=== PATIENT | male | born 1970 | race Two or more races ===

== ENCOUNTER 2023-08-03 21:59 | Inpatient (IN) | payer OTHER ==
[~2023-08-03] VITALS: Ht 160 cm; Wt 83.9 kg
[2023-08-03] MEDS ORDERED: TOPROL XL200 MG (22:07)
[2023-08-03] MEDS ORDERED: COZAAR100 MG PO (22:07)
[2023-08-03] MEDS ORDERED: KAPSPARGO SPRI200 MG PO (22:07)
[2023-08-03] MEDS ORDERED: SODIUM CHLORIDE 0.45 % 1,000 ML IV SCH (22:15)
[2023-08-03] MEDS ORDERED: CEFTRIAXONE SODIUM 2,000 MG VIAL IV ONE (22:15)
[2023-08-03 23:16] LABS: HEMATOCRIT 27.8 % (39.0-48.0); MEAN CELL VOLUME 94.2 fL (80.0-100.00); PLATELET COUNT 161 K/uL (150-450); RED BLOOD COUNT 2.95 M/uL (4.00-6.00); RED CELL DISTRIBUTION WIDTH 12.7 % (11.5-14.5)
[2023-08-03 23:19] LABS: HEMOGLOBIN 9.5 g/dL (13-16.00); MEAN CORPUSCULAR HEMOGLOBIN 32.2 pg (27.00-32.0)
[2023-08-03 23:42] LABS: ALBUMIN 2.9 gm/dL (3.4-5.0); BILIRUBIN TOTAL 0.6 mg/dL (0.3-1.2); GLOBULINA 4.5 G/DL (2.4-3.5); POTASSIUM 4.24 mEq/L (3.5-5.1); TOTAL PROTEIN 7.4 gm/dL (6.4-8.2)
[2023-08-03 23:51] LABS: GFR 3.86
[2023-08-03 23:52] LABS: CREATININE SERUM 13.6 mg/dL (0.70-1.30)
[2023-08-04 10:35] LABS: PH,URINE 5.5 (5.0-8.0); URINE APPEARANCE Turbid; URINE BACTERIA 3386.8 uL (0.0-1933); URINE BILIRRUBIN Negative (NEGATIVE); URINE BLOOD Large; URINE COLOR Yellow; URINE EPITHELIAL CELLS 29.8 uL (0.0-38.8); URINE GLUCOSE Negative (NEGATIVE); URINE LEUKOCYTE Large; URINE NITRATE Negative; URINE RBC 95.5 uL (0.0-20.8); URINE UROBILINOGEN 0.2 E.U./dl
[2023-08-04 10:59] LABS: URINE PROTEIN 300 (NEGATIVE); URINE WBC > 5548.3 uL (0.0-23.2)
[2023-08-04] MEDS ORDERED: CITRIC ACID/SODIUM CITRATE 30 ML BLIST.PACK PO SCH (17:29)
[2023-08-04] MEDS ORDERED: SODIUM CHLORIDE 0.45 % 1,000 ML IV SCH (17:30)
[2023-08-04] MEDS ORDERED: ONDANSETRON HCL 4 MG in 0.9 % SODIUM CHLORIDE 50 ML IV PRN (17:45)
[2023-08-04] MEDS ORDERED: hydrALAZINE HCL 25 MG TABLET PO PRN (17:45)
[2023-08-04] MEDS ORDERED: ACETAMINOPHEN 500 MG GEL..CAP PO PRN (17:45)
[2023-08-04 18:48] LABS: INR 1.13; PARTIAL THROMBOPLASTIN TIME 33.6 SECONDS (22.0-34.0); PROTHROMBIN TIME 11.8 SECONDS (9.0-11.5)
[2023-08-04 19:09] LABS: ALBUMIN 2.7 gm/dL (3.4-5.0); BILIRUBIN TOTAL 0.34 mg/dL (0.3-1.2); CALCIUM 7.4 mg/dL (8.5-10.1); GFR 3.37; GLOBULINA 4.6 G/DL (2.4-3.5); POTASSIUM 4.24 mEq/L (3.5-5.1); TOTAL PROTEIN 7.3 gm/dL (6.4-8.2)
[2023-08-04 19:25] LABS: MAGNESIUM 1.8 mg/dL (1.8-2.4); PHOSPHOROUS 6.8 mg/dL (2.5-4.9)
[2023-08-04 19:45] LABS: CREATININE SERUM 15.3 mg/dL (0.70-1.30)
[2023-08-04 20:11] LABS: ABG PH 7.346 (7.35-7.45); ABG PO2 80.4 mmHg (80-100); ABG pCO2 24.5 mmHg (35-45); BASE EXCESS -10.5 mmol/l; BICARBONATE 13.1 mmol/l (23-25); SaO2 94.5 %; Tco2 13.8 mmol/l; allen test SATISFACTORY; o2 21 %; puncture site RADIAL RIGHT
[2023-08-04] MEDS ORDERED: CEFTRIAXONE SODIUM 1,000 MG in DEXTROSE 5 % IN WATER 100 ML IV SCH (21:00)
[2023-08-05 08:37] LABS: CHOL HDL RATIO 7.9 (0-5.0); TSH 1.09 uIU/mL (0.358-3.74)
[2023-08-05 08:41] LABS: ALBUMIN 2.4 gm/dL (3.4-5.0); PHOSPHOROUS 7.8 mg/dL (2.5-4.9); POTASSIUM 4.91 mEq/L (3.5-5.1)
[2023-08-05 08:54] LABS: CALCIUM 6.6 mg/dL (8.5-10.1); CREATININE SERUM 15.4 mg/dL (0.70-1.30); GFR 3.34; PROSTATIC SPECIFIC ANTIGEN 18.8 NG/ML (0.010-4.00)
[2023-08-05] MEDS ORDERED: FAMOTIDINE/PF 20 MG in 0.9 % SODIUM CHLORIDE 8 ML IV PUSH SCH (09:00)
[2023-08-05] MEDS ORDERED: METOPROLOL SUCCINATE 100 MG TAB.SR.24H PO SCH (09:00)
[2023-08-05] MEDS ORDERED: ATORVASTATIN CALCIUM 40 MG TABLET PO SCH (09:00)
[2023-08-06] MEDS ORDERED: CEFTRIAXONE SODIUM 2,000 MG in 0.9 % SODIUM CHLORIDE 100 ML IV SCH (09:00)
[2023-08-06] MEDS ORDERED: HEPARIN SODIUM,PORCINE 500 UNITS/5 ML VIAL IV ONE (17:11)
[2023-08-07 04:42] LABS: MEAN CELL VOLUME 92.4 fL (80.0-100.00); MEAN CORPUSCULAR HGB CONC 34.7 g/dl (32.0-36.0); PLATELET COUNT 197 K/uL (150-450); RED BLOOD COUNT 2.52 M/uL (4.00-6.00); RED CELL DISTRIBUTION WIDTH 12.2 % (11.5-14.5)
[2023-08-07 04:51] LABS: HEMATOCRIT 23.3 % (39.0-48.0); HEMOGLOBIN 8.1 g/dL (13-16.00); MEAN CORPUSCULAR HEMOGLOBIN 32.1 pg (27.00-32.0)
[2023-08-07 05:15] LABS: ALBUMIN 2.3 gm/dL (3.4-5.0); BILIRUBIN TOTAL 0.21 mg/dL (0.3-1.2); GLOBULINA 3.4 G/DL (2.4-3.5); POTASSIUM 4.16 mEq/L (3.5-5.1); TOTAL PROTEIN 5.7 gm/dL (6.4-8.2)
[2023-08-07 05:30] LABS: CREATININE SERUM 12.8 mg/dL (0.70-1.30); GFR 4.14
[2023-08-07 05:31] LABS: CALCIUM 5.7 mg/dL (8.5-10.1)
[2023-08-07] MEDS ORDERED: Calcium Acetate 667 MG CAP PO SCH (07:00)
[2023-08-07] MEDS ORDERED: EPOETIN ALFA-EPBX 10,000 UNIT/ML VIAL (Retacrit) SUBCUTANEO ONE (07:00)
[2023-08-07] MEDS ORDERED: IRON FUM,PS/FOLIC/BCOMP,C NO.9 1 CAP CAPSULE PO SCH (09:00)
[2023-08-07] MEDS ORDERED: EPOETIN ALFA-EPBX 10,000 UNIT/ML 2ML VIAL SUBCUTANEO ONE (09:15)
[2023-08-07] MEDS ORDERED: hydrALAZINE HCL 20 MG VIAL IV PRN (09:45)
[2023-08-07] MEDS ORDERED: hydrALAZINE HCL 25 MG TABLET PO SCH (13:00)
[2023-08-07] MEDS ORDERED: METOPROLOL SUCCINATE 100 MG TAB.SR.24H PO SCH (21:00)
[2023-08-08 06:32] LABS: HEMATOCRIT 24.4 % (39.0-48.0); MEAN CELL VOLUME 92.8 fL (80.0-100.00); MEAN CORPUSCULAR HGB CONC 35.4 g/dl (32.0-36.0); PLATELET COUNT 228 K/uL (150-450); RED BLOOD COUNT 2.63 M/uL (4.00-6.00); RED CELL DISTRIBUTION WIDTH 12.1 % (11.5-14.5)
[2023-08-08 06:34] LABS: HEMOGLOBIN 8.6 g/dL (13-16.00); MEAN CORPUSCULAR HEMOGLOBIN 32.6 pg (27.00-32.0)
[2023-08-08 07:11] LABS: ALBUMIN 2.4 gm/dL (3.4-5.0); BILIRUBIN TOTAL 0.57 mg/dL (0.3-1.2); CALCIUM 6.8 mg/dL (8.5-10.1); GFR 7.19; GLOBULINA 3.4 G/DL (2.4-3.5); POTASSIUM 4.41 mEq/L (3.5-5.1); TOTAL PROTEIN 5.8 gm/dL (6.4-8.2)
[2023-08-08 07:53] LABS: CREATININE SERUM 7.93 mg/dL (0.70-1.30)
[2023-08-08] MEDS ORDERED: 0.9 % SODIUM CHLORIDE 10 ML VIAL IJ ONE (08:35)
[2023-08-08] MEDS ORDERED: NIFEDIPINE 30 MG TAB.SA.OSM PO SCH (09:00)
[2023-08-08] MEDS ORDERED: hydrALAZINE HCL 50 MG TABLET PO SCH ×2 (09:00)
[2023-08-08] MEDS ORDERED: TRAMADOL HCL 50 MG TABLET PO PRN (18:45)
[2023-08-08] MEDS ORDERED: CARVEDILOL 12.5 MG TABLET PO SCH (21:00)
[2023-08-10 06:34] LABS: HEMATOCRIT 25.4 % (39.0-48.0); MEAN CELL VOLUME 93.8 fL (80.0-100.00); MEAN CORPUSCULAR HEMOGLOBIN 32.8 pg (27.00-32.0); PLATELET COUNT 245 K/uL (150-450); RED BLOOD COUNT 2.71 M/uL (4.00-6.00); RED CELL DISTRIBUTION WIDTH 11.9 % (11.5-14.5)
[2023-08-10 06:48] LABS: HEMOGLOBIN 8.9 g/dL (13-16.00)
[2023-08-10 07:15] LABS: ALBUMIN 2.4 gm/dL (3.4-5.0); CALCIUM 7.1 mg/dL (8.5-10.1); GFR 8.66; PHOSPHOROUS 4.6 mg/dL (2.5-4.9); POTASSIUM 4.06 mEq/L (3.5-5.1)
[2023-08-10 07:33] LABS: CREATININE SERUM 6.75 mg/dL (0.70-1.30)
[2023-08-10] MEDS ORDERED: NIFEDIPINE 30 MG TAB.SA.OSM PO SCH (09:00)
[2023-08-10] MEDS ORDERED: DOXAZOSIN MESYLATE 2 MG TABLET PO SCH (10:12)
[2023-08-10] MEDS ORDERED: TUBERCULIN,PURIF.PROT.DERIV. 10 SKIN.TEST SKIN.TEST ID ONE (14:30)
[2023-08-11] MEDS ORDERED: ISOSORBIDE MONONITRATE 30 MG TABLET PO SCH (09:00)
[2023-08-12 09:06] LABS: HEMATOCRIT 23.8 % (39.0-48.0); HEMOGLOBIN 8.1 g/dL (13-16.00); MEAN CELL VOLUME 94.2 fL (80.0-100.00); MEAN CORPUSCULAR HEMOGLOBIN 32.1 pg (27.00-32.0); MEAN CORPUSCULAR HGB CONC 34.1 g/dl (32.0-36.0); PLATELET COUNT 266 K/uL (150-450); RED BLOOD COUNT 2.52 M/uL (4.00-6.00); RED CELL DISTRIBUTION WIDTH 12.4 % (11.5-14.5)
[2023-08-12 09:27] LABS: CALCIUM 7.8 mg/dL (8.5-10.1); GFR 8.95; POTASSIUM 4.02 mEq/L (3.5-5.1)
[2023-08-12 09:46] LABS: CREATININE SERUM 6.56 mg/dL (0.70-1.30)
[2023-08-12 10:08] LABS: PH,URINE 7.5 (5.0-8.0); URINE APPEARANCE Clear; URINE BILIRRUBIN Negative (NEGATIVE); URINE BLOOD Trace; URINE COLOR Yellow; URINE GLUCOSE Negative (NEGATIVE); URINE LEUKOCYTE Negative; URINE NITRATE Negative; URINE UROBILINOGEN 0.2 E.U./dl
[2023-08-12 10:14] LABS: URINE BACTERIA 22.6 uL (0.0-1933); URINE EPITHELIAL CELLS 2.4 uL (0.0-38.8); URINE RBC 19.1 uL (0.0-20.8); URINE WBC 12.6 uL (0.0-23.2)
[2023-08-12 10:39] LABS: URINE PROTEIN 100 (NEGATIVE)
[2023-08-13 07:31] LABS: MEAN CELL VOLUME 94.2 fL (80.0-100.00); MEAN CORPUSCULAR HGB CONC 34.2 g/dl (32.0-36.0); PLATELET COUNT 288 K/uL (150-450); RED BLOOD COUNT 2.44 M/uL (4.00-6.00); RED CELL DISTRIBUTION WIDTH 12.2 % (11.5-14.5)
[2023-08-13 07:38] LABS: INR 1.09; PARTIAL THROMBOPLASTIN TIME 29.6 SECONDS (22.0-34.0); PROTHROMBIN TIME 11.4 SECONDS (9.0-11.5)
[2023-08-13 07:42] LABS: HEMOGLOBIN 7.9 g/dL (13-16.00); MEAN CORPUSCULAR HEMOGLOBIN 32.3 pg (27.00-32.0)
[2023-08-13 07:55] LABS: ALBUMIN 2.8 gm/dL (3.4-5.0); BILIRUBIN TOTAL 0.3 mg/dL (0.3-1.2); CALCIUM 7.6 mg/dL (8.5-10.1); GFR 7.26; GLOBULINA 3.2 G/DL (2.4-3.5); POTASSIUM 4.12 mEq/L (3.5-5.1)
[2023-08-13 08:01] LABS: CREATININE SERUM 7.87 mg/dL (0.70-1.30)
[2023-08-13] MEDS ORDERED: CEFTRIAXONE SODIUM 2,000 MG in 0.9 % SODIUM CHLORIDE 100 ML IV SCH (09:26)
[2023-08-14 16:14] LABS: HEMATOCRIT 29.2 % (39.0-48.0); MEAN CELL VOLUME 91.9 fL (80.0-100.00); MEAN CORPUSCULAR HGB CONC 33.9 g/dl (32.0-36.0); PLATELET COUNT 228 K/uL (150-450); RED BLOOD COUNT 3.18 M/uL (4.00-6.00); RED CELL DISTRIBUTION WIDTH 13.7 % (11.5-14.5)
[2023-08-14 16:25] LABS: HEMOGLOBIN 9.9 g/dL (13-16.00); MEAN CORPUSCULAR HEMOGLOBIN 31.1 pg (27.00-32.0)
[2023-08-15] MEDS ORDERED: DOXAZOSIN MESYLATE 2 MG TABLET PO SCH (17:00)
[2023-08-15] MEDS ORDERED: IOVERSOL 320 MG/ML - 50 ML VIAL IV ONE (19:14)
[2023-08-15] MEDS ORDERED: BUPIVACAINE HCL/PF 0.25% 30ML VIAL InF ONE (20:45)
[2023-08-17 06:31] LABS: HEMATOCRIT 28.5 % (39.0-48.0); MEAN CELL VOLUME 91.9 fL (80.0-100.00); MEAN CORPUSCULAR HEMOGLOBIN 31.8 pg (27.00-32.0); MEAN CORPUSCULAR HGB CONC 34.7 g/dl (32.0-36.0); PLATELET COUNT 207 K/uL (150-450); RED BLOOD COUNT 3.11 M/uL (4.00-6.00); RED CELL DISTRIBUTION WIDTH 13.6 % (11.5-14.5)
[2023-08-17 06:57] LABS: HEMOGLOBIN 9.9 g/dL (13-16.00)
== END 2023-08-18 13:44 | disposition home or self-care (01) | DRG 689 ==
LOC: ER 21:59 → MEDI 08-04 18:01 → MEDJ 08-04 18:01
PROVIDERS: Emergency Medicine; General Practice; Internal Medicine; Internal Medicine Nephrology; ADMIT Internal Medicine; ATTEND Internal Medicine
PROC: BW21ZZZ Computerized Tomography (CT Scan) of Abdomen and Pelvis (ICD-10-PCS; principal; 2023-08-04)
PROC: B246ZZZ Ultrasonography of Right and Left Heart (ICD-10-PCS; 2023-08-04)
PROC: 4A12X4Z Monitoring of Cardiac Electrical Activity, External Approach (ICD-10-PCS; 2023-08-04)
PROC: 05HM33Z Insertion of Infusion Device into Right Internal Jugular Vein, Percutaneous Approach (ICD-10-PCS; 2023-08-06)
PROC: 5A1D70Z Performance of Urinary Filtration, Intermittent, Less than 6 Hours Per Day (ICD-10-PCS; 2023-08-07)
PROC: 5A1D70Z Performance of Urinary Filtration, Intermittent, Less than 6 Hours Per Day (ICD-10-PCS; 2023-08-09)
PROC: 5A1D70Z Performance of Urinary Filtration, Intermittent, Less than 6 Hours Per Day (ICD-10-PCS; 2023-08-14)
PROC: 30233N1 Transfusion of Nonautologous Red Blood Cells into Peripheral Vein, Percutaneous Approach (ICD-10-PCS; 2023-08-14)
PROC: 05HM33Z Insertion of Infusion Device into Right Internal Jugular Vein, Percutaneous Approach (ICD-10-PCS; 2023-08-15)
PROC: 5A1D70Z Performance of Urinary Filtration, Intermittent, Less than 6 Hours Per Day (ICD-10-PCS; 2023-08-16)
PROC: 5A1D70Z Performance of Urinary Filtration, Intermittent, Less than 6 Hours Per Day (ICD-10-PCS; 2023-08-18)
DX: N39.0 Urinary tract infection, site not specified (principal); I21.A1 Myocardial infarction type 2; N17.8 Other acute kidney failure; N18.5 Chronic kidney disease, stage 5; I12.0 Hypertensive chronic kidney disease with stage 5 chronic kidney disease or end stage renal disease; R78.81 Bacteremia; B96.29 Other Escherichia coli [E. coli] as the cause of diseases classified elsewhere; Z99.2 Dependence on renal dialysis; N41.9 Inflammatory disease of prostate, unspecified